=== PATIENT | male | born 1970 | race Caucasian/White ===

== ENCOUNTER 2017-09-22 08:10 | Emergency (ER) | payer OTHER ==
[~2017-09-22] VITALS: Ht 172.7 cm; Wt 109.3 kg
[2017-09-22] MEDS ORDERED: GABA100 (08:52)
[2017-09-22] MEDS ORDERED: Robaxin750 MG (08:52)
[2017-09-22] MEDS ORDERED: DICL75ER (08:52)
[2017-09-22] MEDS ORDERED: MELO7.5 (08:52)
[2017-09-22] MEDS ORDERED: BACL10 (08:52)
[2017-09-22] MEDS ORDERED: METPRE4DP (08:52)
[2017-09-22] MEDS ORDERED: Flonase 0.05% N16 GM (08:52)
[2017-09-22] MEDS ORDERED: Voltaren100 GM TOP (08:54)
[2017-09-22] MEDS ORDERED: Robaxin500 MG PO (08:55)
[2017-09-22] MEDS ORDERED: Norco 5-325 Ta1 EACH PO (08:55)
== END 2017-09-22 09:17 | disposition home or self-care (01) ==
LOC: ER 08:10
DX: G89.29 Other chronic pain (principal); M54.5 Low back pain; Z79.899 Other long term (current) drug therapy
CPT/HCPCS: 96372; 99283; J1885

== ENCOUNTER 2019-05-18 03:51 | Emergency (ER) | payer OTHER ==
[~2019-05-18] VITALS: Ht 172.7 cm; Wt 99.8 kg
[~2019-05-18 03:51] MED LIST: BACL10; DICL75ER; Flonase 0.05% N16 GM; GABA100; MELO7.5; METPRE4DP; Norco 5-325 Ta1 EACH PO; Robaxin500 MG PO; Robaxin750 MG; Voltaren100 GM TOP
[2019-05-18] MEDS ORDERED: Prednisone20 MG PO (04:49)
[2019-05-18] MEDS ORDERED: Roxicodone5 MG PO (04:49)
== END 2019-05-18 05:53 | disposition home or self-care (01) ==
LOC: ER 03:51
DX: M10.9 Gout, unspecified (principal); Z79.899 Other long term (current) drug therapy
CPT/HCPCS: 96372; 99282-25; J1885

== ENCOUNTER 2019-09-11 18:54 | Emergency (ER) | payer OTHER ==
[~2019-09-11] VITALS: Ht 172.7 cm; Wt 102.1 kg
[~2019-09-11 18:54] MED LIST changes: +Prednisone20 MG PO; +Roxicodone5 MG PO
[2019-09-11 20:10] LABS: BASOPHILS ABSOLUTE AUTO 0.03 K/mm3 (0.00-0.23); BASOPHILS PERCENT AUTO 0 % (0-2); EOSINOPHILS ABSOLUTE AUTO 0.09 K/mm3 (0.00-0.68); EOSINOPHILS PERCENT AUTO 1 % (0-6); Hematocrit 49.1 % (37.0-53.0); Hemoglobin 16.4 g/dL (13.5-17.5); IMMATURE GRAN ABSOLUTE AUTO 0.02 K/mm3 (0.00-0.10); IMMATURE GRAN PERCENT AUTO 0 % (0-1); LYMPHOCYTES ABSOLUTE AUTO 1.21 K/mm3 (0.84-5.20); LYMPHOCYTES PERCENT AUTO 14 % (21-46); MONOCYTES ABSOLUTE AUTO 0.53 K/mm3 (0.16-1.47); MONOCYTES PERCENT AUTO 6 % (4-13); Mean Corpuscular HGB 29.9 pg (26.0-34.0); Mean Corpuscular HGB Conc 33.4 g/dL (31.5-36.5); Mean Corpuscular Volume 89 fL (80-100); Mean Platelet Volume 10.1 fL (9.1-12.4); NEUTROPHILS ABSOLUTE AUTO 6.88 K/mm3 (1.96-9.15); NEUTROPHILS PERCENT AUTO 79 % (41-73); Platelet Count 267 K/mm3 (150-400); RDW Coefficient Variation 12.7 % (11.7-14.2); RDW Standard Deviation 41.9 fL (35.1-46.3); Red Blood Cell Count 5.49 M/mm3 (4.30-5.90); Source, Urine Clean Catch; White Blood Cell Count 8.76 K/mm3 (4.00-11.30)
[2019-09-11 20:15] LABS: Bilirubin, Urine Neg (Neg); Blood, Urine Neg (Neg); Glucose Qualitative, Urine Neg (Neg); Ketones, Urine Neg (Neg); Leukocyte Esterase, Urine Neg (Neg); Nitrite, Urine Neg (Neg); Protein, Urine Neg (Neg); Specific Gravity, Urine 1.025 (1.003-1.022); Urobilinogen, Urine NORM (Normal)
[2019-09-11 20:18] LABS: Appearance, Urine Clear (Clear); Color, Urine Yellow (P-Yellow)
[2019-09-11 20:29] LABS: Alanine Aminotransfer (ALT/SGP 48 U/L (12-78); Albumin, Blood 4.1 g/dL (3.4-5.0); Albumin/Globulin Ratio 1.1 (0.8-1.8); Alk Phos 84 U/L (50-136); Anion Gap 5 mmol/L (6-16); Aspartate Aminotrans (AST/SGOT 38 U/L (12-37); Bilirubin, Total 0.4 mg/dL (0.1-1.0); Blood Urea Nitrogen 15 mg/dL (8-24); Bun/Creatinine Ratio 16.2 (12.0-20.0); CO2, Blood 25 mmol/L (21-32); Calcium, Blood 8.6 mg/dL (8.5-10.1); Chloride, Blood 110 mmol/L (98-108); Creatinine, Blood 0.93 mg/dL (0.60-1.20); Globulin, Blood 3.6 g/dL (2.2-4.0); Glomerular Filtration Rate >60 (60-); Glucose, Blood 101 mg/dL (70-99); Potassium, Blood 4.1 mmol/L (3.5-5.5); Sodium, Blood 140 mmol/L (136-145); Total Protein, Blood 7.7 g/dL (6.4-8.2)
[2019-09-11] MEDS ORDERED: LOPE2C PO (22:59)
[2019-09-11] MEDS ORDERED: ONDA4ODT SL (22:59)
== END 2019-09-11 23:14 | disposition home or self-care (01) ==
LOC: ER 18:54
PROVIDERS: Physician Assistant
DX: R19.7 Diarrhea, unspecified (principal); R10.9 Unspecified abdominal pain; R11.10 Vomiting, unspecified
CPT/HCPCS: 36415; 80053; 81003; 83690; 85025; 96361; 96374; 96375; 99284-25; A9270-GY; J1200; J1885; J2405; J2765; J7120

== ENCOUNTER 2019-10-19 20:33 | Emergency (ER) | payer OTHER ==
[~2019-10-19] VITALS: Ht 172.7 cm; Wt 108.9 kg
[~2019-10-19 20:33] MED LIST changes: +LOPE2C PO; +ONDA4ODT SL
[2019-10-19] MEDS ORDERED: ACETAMINOPHEN500 MG PO (21:13)
[2019-10-19] MEDS ORDERED: CIPR500 PO (21:13)
== END 2019-10-19 21:24 | disposition home or self-care (01) ==
LOC: ER 20:33
DX: S91.332D Puncture wound without foreign body, left foot, subsequent encounter (principal); M10.9 Gout, unspecified; M54.9 Dorsalgia, unspecified; G89.29 Other chronic pain; Z23 Encounter for immunization; Z79.899 Other long term (current) drug therapy; F17.210 Nicotine dependence, cigarettes, uncomplicated
CPT/HCPCS: 90471; 90714; 99283-25

== ENCOUNTER → 2020-04-16 | Outpatient (CLI) | payer OTHER ==
[~2020-04-16] MED LIST changes: +ACETAMINOPHEN500 MG PO; +CIPR500 PO
== END ==
LOC: LAB 09:57 → LAB SHORT 09:57
DX: Z51.81 Encounter for therapeutic drug level monitoring (principal); Z79.899 Other long term (current) drug therapy
CPT/HCPCS: G0480

== ENCOUNTER → 2021-07-22 | Outpatient (CLI) | payer OTHER ==
[2021-07-22 13:45] LABS: Stool Occult Blood Guaiac 1 Neg (Neg)
[2021-07-22 15:22] LABS: Adenovirus F 40/41 Not Detected (NOT DETECT); Astrovirus Not Detected (NOT DETECT); Campylobacter Sp Not Detected (NOT DETECT); Cryptosporidium Not Detected (NOT DETECT); Cyclospora Cayetanensis Not Detected (NOT DETECT); E. Coli O157 Not Detected (NOT DETECT); Entamoeba Histolytica Not Detected (NOT DETECT); Enteroaggregative E. coli-EAEC Not Detected (NOT DETECT); Enteropathogenic E. coli-EPEC Not Detected (NOT DETECT); Enterotoxigenic E. coli-ETEC Not Detected (NOT DETECT); Giardia Lamblia Not Detected (NOT DETECT); Plesiomonas Shigelloides Not Detected (NOT DETECT); Salmonella Sp Not Detected (NOT DETECT); Shiga Toxin-prod E. coli-STEC Not Detected (NOT DETECT); Shigella/Enteroin E. coli-EIEC Not Detected (NOT DETECT); Vibrio Cholerae Not Detected (NOT DETECT); Vibrio Sp Not Detected (NOT DETECT); Yersinia Enterocolitica Not Detected (NOT DETECT)
[2021-07-22 15:23] LABS: Norovirus GI/GII Not Detected (NOT DETECT); Rotavirus A Not Detected (NOT DETECT); Sapovirus Not Detected (NOT DETECT)
== END | disposition home or self-care (01) ==
LOC: LAB SHORT 07:30
PROVIDERS: Family Medicine
DX: Z12.11 Encounter for screening for malignant neoplasm of colon (principal); K52.9 Noninfective gastroenteritis and colitis, unspecified
CPT/HCPCS: 0097U; 82270

== ENCOUNTER → 2021-08-12 | Outpatient (CLI) | payer OTHER ==
[2021-08-15 13:09] LABS: COTININE Negative ng/mL (Cutoff=300)
== END | disposition home or self-care (01) ==
LOC: LAB 09:35 → LAB SHORT 09:35
PROVIDERS: Family Medicine
DX: Z72.0 Tobacco use (principal)

== ENCOUNTER → 2022-11-28 | Outpatient (CLI) | payer OTHER | END | disposition home or self-care (01) | LOC: PLD 12:14 → LAB SHORT 12:14 | DX: L82.1 Other seborrheic keratosis (principal) | CPT/HCPCS: 88305 ==

== ENCOUNTER 2025-01-18 06:48 | Emergency (ER) | payer OTHER ==
[~2025-01-18] VITALS: Ht 172.7 cm; Wt 117.9 kg
[2025-01-18] MEDS ORDERED: BUPRENORPHINE HC8 MG SL (07:31)
[2025-01-18] MEDS ORDERED: EFFEXOR XR150 MG PO (07:32)
[2025-01-18] MEDS ORDERED: OZEMPIC2 MG/0.75 (07:33)
[2025-01-18] MEDS ORDERED: Ondansetron HCl 2 MG / ML 2ML Vial IV PRN (07:35)
[2025-01-18] MEDS ORDERED: Ketorolac Tromethamine 15mg Vial IV ONE (07:50)
[2025-01-18 08:10] LABS: Alanine Aminotransfer (ALT/SGP 61.0 U/L (12-78); Albumin, Blood 3.8 g/dL (3.4-5.0); Albumin/Globulin Ratio 1.0 (0.8-1.8); Anion Gap 9.0 mmol/L (3-11); Aspartate Aminotrans (AST/SGOT 36.0 U/L (12-37); BASOPHILS ABSOLUTE AUTO 0.01 K/mm3 (0.00-0.23); BASOPHILS PERCENT AUTO 0 % (0-2); Bilirubin, Total 0.5 mg/dL (0.1-1.0); Blood Urea Nitrogen 15.0 mg/dL (8-24); CO2, Blood 28.0 mmol/L (21-32); Calcium, Blood 8.9 mg/dL (8.5-10.1); Chloride, Blood 105.0 mmol/L (98-108); Creatinine, Blood 0.92 mg/dL (0.60-1.20); EOSINOPHILS ABSOLUTE AUTO 0.05 K/mm3 (0.00-0.68); EOSINOPHILS PERCENT AUTO 0 % (0-6); Globulin, Blood 3.9 g/dL (2.2-4.0); Glucose, Blood 159.0 mg/dL (70-99); Hematocrit 42.9 % (37.0-53.0); Hemoglobin 14.6 g/dL (13.5-17.5); IMMATURE GRAN ABSOLUTE AUTO 0.02 K/mm3 (0.00-0.10); IMMATURE GRAN PERCENT AUTO 0 % (0-1); LYMPHOCYTES ABSOLUTE AUTO 0.84 K/mm3 (0.84-5.20); LYMPHOCYTES PERCENT AUTO 8 % (21-46); MONOCYTES ABSOLUTE AUTO 0.38 K/mm3 (0.16-1.47); MONOCYTES PERCENT AUTO 3 % (4-13); Mean Corpuscular HGB Conc 34.0 g/dL (31.5-36.5); Mean Corpuscular Volume 87 fL (80-100); NEUTROPHILS ABSOLUTE AUTO 9.82 K/mm3 (1.96-9.15); NEUTROPHILS PERCENT AUTO 88 % (41-73); NRBC ABSOLUTE 0.00 K/mm3 (0.00-0.02); NRBC Auto 0.0 /100 WBC (0.0-0.2); Platelet Count 246 K/mm3 (150-400); Potassium, Blood 3.9 mmol/L (3.5-5.5); RDW Coefficient Variation 12.5 % (11.7-14.2); RDW Standard Deviation 39.8 fL (35.1-46.3); Sodium, Blood 138.0 mmol/L (136-145); Total Protein, Blood 7.7 g/dL (6.4-8.2)
[2025-01-18] MEDS ORDERED: Haloperidol Lactate Inj. 5 MG/ML Injection IV ONE (08:30)
[2025-01-18] MEDS ORDERED: Morphine Sulfate 4 MG/1 ML Injection IV ONE (09:05)
[2025-01-18] MEDS ORDERED: Lidocaine 2% Viscous Soln 15 ML UDC PO ONE (09:30)
[2025-01-18] MEDS ORDERED: NS 1,000 ML IV SCH (10:15)
[2025-01-18 10:48] LABS: Source, Urine Clean Catch
[2025-01-18 10:52] LABS: Bilirubin, Urine Neg (Neg); Color, Urine Yellow (P-Yellow); Glucose Qualitative, Urine Neg (Neg); Ketones, Urine 1+ (Neg); Leukocyte Esterase, Urine Neg (Neg); Protein, Urine Neg (Neg); Specific Gravity, Urine 1.010 (1.003-1.022); Urobilinogen, Urine 1+ (Normal)
[2025-01-18] MEDS ORDERED: ONDA4ODT MM (11:02)
[2025-01-18 11:15] VITALS: BP 123/71
[2025-01-18] MEDS ORDERED: PRED20 PO (19:33)
[2025-01-18] MEDS ORDERED: EPIPEN0.3 MG/0.3 IM (20:17)
== END 2025-01-18 11:20 | disposition home or self-care (01) ==
LOC: ER 06:48
PROVIDERS: Student in an Organized Health Care Education/Training Program
DX: R10.33 Periumbilical pain (principal); R11.2 Nausea with vomiting, unspecified; F17.210 Nicotine dependence, cigarettes, uncomplicated; Z79.899 Other long term (current) drug therapy; T88.6XXA Anaphylactic reaction due to adverse effect of correct drug or medicament properly administered, initial encounter; L50.9 Urticaria, unspecified; R06.2 Wheezing; T50.905A Adverse effect of unspecified drugs, medicaments and biological substances, initial encounter; Z79.52 Long term (current) use of systemic steroids; Z79.85 Long-term (current) use of injectable non-insulin antidiabetic drugs
CPT/HCPCS: 74177; 80053; 81003; 83690; 84484; 85025; 93005; 93010; 96361; 96372-59; 96374; 96374-59; 96375; 99284-25; 99285-25; A9270; J0165; J1200; J1630; J1885; J2270; J2405; J2919; J7030; Q9967

== ENCOUNTER 2025-01-18 17:43 | Emergency (ER) | payer OTHER ==
[~2025-01-18] VITALS: Ht 172.7 cm; Wt 117.9 kg
[~2025-01-18 17:43] MED LIST changes: +BUPRENORPHINE HC8 MG SL; +EFFEXOR XR150 MG PO; +ONDA4ODT MM; +OZEMPIC2 MG/0.75
[2025-01-18] MEDS ORDERED: DiphenhydrAMINE HCl 50 MG/ML 1ML Vial IV ONE ×2 (18:25→19:00)
[2025-01-18] MEDS ORDERED: EpiNEPhrine 1 MG/1 ML 1ML Vial IM ONE (18:30)
[2025-01-18] MEDS ORDERED: NS 500 ML IV SCH (18:30)
[2025-01-18 19:05] VITALS: BP 118/79
[2025-01-18] MEDS ORDERED: PRED20 PO (19:33)
[2025-01-18] MEDS ORDERED: EPIPEN0.3 MG/0.3 IM (20:17)
== END 2025-01-18 20:23 | disposition home or self-care (01) ==
LOC: ER 17:43
DX: T88.6XXA Anaphylactic reaction due to adverse effect of correct drug or medicament properly administered, initial encounter (principal); L50.9 Urticaria, unspecified; R06.2 Wheezing; T50.905A Adverse effect of unspecified drugs, medicaments and biological substances, initial encounter; F17.210 Nicotine dependence, cigarettes, uncomplicated; Z79.52 Long term (current) use of systemic steroids; Z79.85 Long-term (current) use of injectable non-insulin antidiabetic drugs; Z79.899 Other long term (current) drug therapy
CPT/HCPCS: J0165; J1200; J2919; J7030